=== PATIENT | male | born 1970 | race African-American/Black ===

== ENCOUNTER 2017-08-25 10:02 | Emergency (ER) | payer BC | END 2017-08-25 10:39 | disposition left against medical advice (07) | LOC: ERS 10:02 | DX: Z53.21 Procedure and treatment not carried out due to patient leaving prior to being seen by health care provider (principal) ==

== ENCOUNTER 2018-11-04 23:26 | Emergency (ER) | payer BC ==
[2018-11-05] MEDS ORDERED: Adacel (T-DAP) 0.5 ML SYRINGE ONE ×2 (00:44→00:49)
--- NOTE | 2018-11-05 08:13 | RAD ---
LEFT KNEE 4 VIEWS: Date: 11/04/18 HISTORY: Injury. Pain. COMPARISON: Radiograph from 2015. FINDINGS: No significant joint effusion. No acute fracture or malalignment. There is an area of lucency in the lateral femoral condyle with peripheral sclerosis. This appears re latively similar to the 2015 examination. Mild medial compartment joint space narrowing. IMPRESSION: 1. No acute fracture or malalignment. 2. Mild medial compartment degenerative disease. 3. Subtle lucency lateral tibial plateau extending from the articular surface through the metaphysis with peripheral sclerosis. MRI with and without contrast recommended for further evaluation. CODE T. POS: CET
== END 2018-11-05 01:10 | disposition home or self-care (01) ==
LOC: ERS 23:26
DX: L03.116 Cellulitis of left lower limb (principal); Z23 Encounter for immunization
CPT/HCPCS: 90471; 90715

== ENCOUNTER 2018-11-09 01:07 | Emergency (ER) | payer BC ==
[2018-11-09 01:45] LABS: #Basophils 0.1 thou/uL (0.0-0.2); #Eosinphils 0.4 thou/uL (0.0-0.7); #Lymphocytes 2.8 thou/uL (1.20-3.40); #Monocytes 0.7 thou/uL (0.11-0.59); #Neutrophils 6.4 thou/uL (1.40-6.50); %Basophils 0.7 % (0.0-1.0); %Eosinophils 3.4 % (0.0-10.0); %Lymphocytes 27.5 % (21.0-51.0); %Monocytes 6.4 % (0.0-10.0); Hemoglobin 13.5 g/dL (14.0-18.0); Mean Corpuscular HGB CONC 32.7 g/dL (32.0-36.0); Mean Corpuscular Hemoglobin 31.7 pg (27.0-31.0); Mean Corpuscular Volume 96.9 fL (78.0-98.0); Mean Platelet Volume 9.2 fL (7.4-10.4); Platelet Count 215 thou/uL (130-400); RBC Distribution Width 12.6 % (11.5-14.5); Red Blood Cell (RBC) Count 4.25 mill/uL (4.70-6.10); White Blood Cell (WBC) Count 10.3 thou/uL (4.8-10.8)
[2018-11-09 02:07] LABS: ALT (SGPT) 18 U/L (8-55); AST (SGOT) 18 U/L (5-34); Albumin 4.1 g/dL (3.5-5.0); Alkaline Phosphatase 96 U/L (40-150); Anion Gap 11 mmol/L (10-20); BUN (Urea Nitrogen) 13 mg/dL (8.9-20.6); Bilirubin, Total 0.2 mg/dL (0.2-1.2); Calc. Creatinine Clearance 0 mL/min (70-130); Calcium 9.5 mg/dL (7.8-10.44); Carbon Dioxide 27 mmol/L (22-29); Chloride 102 mmol/L (98-107); Estimated GFR-MDRD 71; Globulin 3.8 g/dL (2.4-3.5); Glucose 112 mg/dL (70-105); Potassium 3.8 mmol/L (3.5-5.1); Protein, Total 7.9 g/dL (6.0-8.3); Sodium 136 mmol/L (136-145)
== END 2018-11-09 04:39 | disposition home or self-care (01) ==
LOC: ERS 01:07
DX: L02.416 Cutaneous abscess of left lower limb (principal)
CPT/HCPCS: 10061; 36415; 80053; 85025